=== PATIENT | female | born 1945 | race Caucasian/White ===

== ENCOUNTER 2021-07-16 15:29 | Inpatient (IN) | payer MEDICARE, OTHER ==
[~2021-07-16] VITALS: Ht 165.1 cm; Wt 81.6 kg
[2021-07-16 16:31] LABS: HEMOGLOBIN 14.1 gm/dl (12.3-15.3); RED BLOOD COUNT 4.71 M/UL (4.00-5.10)
[2021-07-16] MEDS ORDERED: BENZONATATE100 MG PO (18:27)
[2021-07-16] MEDS ORDERED: MEDROL4 MG PO (18:28)
[2021-07-16] MEDS ORDERED: ALLOPURINOL100 MG PO (18:28)
[2021-07-16] MEDS ORDERED: BUMETANIDE2 MG PO (18:28)
[2021-07-16] MEDS ORDERED: SPIRONOLACTONE25 MG PO (18:29)
[2021-07-16] MEDS ORDERED: WARFARIN SODIUM4 MG PO (18:29)
[2021-07-16] MEDS ORDERED: NITROGLYCERIN0.4 MG SL (18:29)
[2021-07-16] MEDS ORDERED: METOPROLOL TART50 MG PO (18:30)
[2021-07-16] MEDS ORDERED: EUTHYROX137 MCG PO (18:30)
[2021-07-16] MEDS ORDERED: CALCITRIOL0.25 MCG PO (18:30)
[2021-07-17 03:03] LABS: HEMOGLOBIN 13.3 gm/dl (12.3-15.3); RED BLOOD COUNT 4.4 M/UL (4.00-5.10)
[2021-07-17 03:33] LABS: WHITE BLOOD COUNT 2.9 K/UL (4.5-11.0)
[2021-07-18 06:57] LABS: HEMOGLOBIN 13.3 gm/dl (12.3-15.3); RED BLOOD COUNT 4.41 M/UL (4.00-5.10)
[2021-07-18 07:00] LABS: WHITE BLOOD COUNT 9.6 K/UL (4.5-11.0)
[2021-07-18 07:18] LABS: BUN/CREATININE RATIO 29 (0-10)
[2021-07-19 07:49] LABS: HEMOGLOBIN 12.4 gm/dl (12.3-15.3); RED BLOOD COUNT 4.24 M/UL (4.00-5.10); WHITE BLOOD COUNT 9.3 K/UL (4.5-11.0)
[2021-07-19 08:17] LABS: BUN/CREATININE RATIO 26 (0-10)
[2021-07-20 07:00] LABS: HEMOGLOBIN 12.7 gm/dl (12.3-15.3); RED BLOOD COUNT 4.37 M/UL (4.00-5.10)
[2021-07-20 07:03] LABS: WHITE BLOOD COUNT 5.9 K/UL (4.5-11.0)
[2021-07-20 07:40] LABS: BUN/CREATININE RATIO 25 (0-10)
[2021-07-21 06:31] LABS: HEMOGLOBIN 13.8 gm/dl (12.3-15.3); RED BLOOD COUNT 4.53 M/UL (4.00-5.10)
[2021-07-21 06:32] LABS: WHITE BLOOD COUNT 10.2 K/UL (4.5-11.0)
[2021-07-21 06:46] LABS: BUN/CREATININE RATIO 28 (0-10)
[2021-07-21] MEDS ORDERED: IPRAT-ALBUT 0.5-3 ML NEB (11:12)
[2021-07-21] MEDS ORDERED: BENZONATATE100 MG PO (11:12)
[2021-07-21] MEDS ORDERED: AUGMENTIN 875-1 EACH PO (11:12)
[2021-07-21] MEDS ORDERED: DEXAMETHASONE2 MG PO (11:12)
[2021-07-21] MEDS ORDERED: BUDESONIDE0.5 MG/2 M NEB (11:12)
[2021-07-21] MEDS ORDERED: AEROECLIPSE II1 EACH INH (11:17)
== END 2021-07-21 14:37 | disposition home or self-care (01) | DRG 177 ==
LOC: ER1 15:29 → M/S 18:51 → CDU 18:51 → M/S 22:15
PROVIDERS: Internal Medicine; Physician Assistant; Physician Assistant Medical; ADMIT Internal Medicine
PROC: 8E0ZXY6 Isolation (ICD-10-PCS; principal; 2021-07-16)
PROC: XW033E5 Introduction of Remdesivir Anti-infective into Peripheral Vein, Percutaneous Approach, New Technology Group 5 (ICD-10-PCS; 2021-07-16)
PROC: 3E0333Z Introduction of Anti-inflammatory into Peripheral Vein, Percutaneous Approach (ICD-10-PCS; 2021-07-16)
DX: U07.1 COVID-19 (principal); G93.41 Metabolic encephalopathy; J12.82 Pneumonia due to coronavirus disease 2019; J96.01 Acute respiratory failure with hypoxia; N17.9 Acute kidney failure, unspecified; I48.20 Chronic atrial fibrillation, unspecified; E78.5 Hyperlipidemia, unspecified; E03.9 Hypothyroidism, unspecified; I10 Essential (primary) hypertension; E87.6 Hypokalemia; M10.9 Gout, unspecified; D69.6 Thrombocytopenia, unspecified; Z90.49 Acquired absence of other specified parts of digestive tract; Z83.3 Family history of diabetes mellitus; Z85.3 Personal history of malignant neoplasm of breast; Z90.11 Acquired absence of right breast and nipple; Z82.49 Family history of ischemic heart disease and other diseases of the circulatory system; Z79.899 Other long term (current) drug therapy; Z95.0 Presence of cardiac pacemaker; Z79.52 Long term (current) use of systemic steroids; Z79.82 Long term (current) use of aspirin
CPT/HCPCS: 36415; 36600; 70450; 71045; 71250; 80053; 80202; 81001; 82140; 82550; 82553; 82728; 82803; 83036; 83540; 83550; 83605; 83735; 83874; 83880; 84100; 84132; 84484; 85025; 85027; 85379; 85610; 85652; 86140; 87040; 87086; 87205; 93005; 94640; 94664; 94760; 96374; 97110-GP-CQ; 97116-GP-CQ; 97161; 97530; 97530-GP-CQ; 99285; J0696; J1100; J1650; J1756; J3370; J3475; J7030; J7070

== ENCOUNTER → 2021-09-07 | Outpatient (CLI) | payer MEDICARE, OTHER ==
[~2021-09-07] MED LIST: AEROECLIPSE II1 EACH INH; ALLOPURINOL100 MG PO; AUGMENTIN 875-1 EACH PO; BENZONATATE100 MG PO; BUDESONIDE0.5 MG/2 M NEB; BUMETANIDE2 MG PO; CALCITRIOL0.25 MCG PO; DEXAMETHASONE2 MG PO; EUTHYROX137 MCG PO; IPRAT-ALBUT 0.5-3 ML NEB; MEDROL4 MG PO; METOPROLOL TART50 MG PO; NITROGLYCERIN0.4 MG SL; SPIRONOLACTONE25 MG PO; WARFARIN SODIUM4 MG PO
== END ==
LOC: KOH-I 10:14
DX: M54.50 Low back pain, unspecified (principal); M47.816 Spondylosis without myelopathy or radiculopathy, lumbar region
CPT/HCPCS: 72100

== ENCOUNTER → 2021-10-01 | Outpatient (CLI) | payer MEDICARE, OTHER | LOC: KOH-I 09-28 14:00 | DX: N18.9 Chronic kidney disease, unspecified (principal) | CPT/HCPCS: 76775 ==

== ENCOUNTER → 2021-10-23 | Outpatient (CLI) | payer MEDICARE, OTHER ==
[2021-10-24 10:14] LABS: CREATININE, URINE 69.3 mg/dL (Not Estab.)
== END ==
LOC: LAB 09:51
PROVIDERS: Internal Medicine Nephrology
DX: N18.9 Chronic kidney disease, unspecified (principal); M10.9 Gout, unspecified
CPT/HCPCS: 36415; 80053; 81001; 82043; 82570; 84156; 84550

== ENCOUNTER → 2022-01-07 | Outpatient (CLI) | payer MEDICARE, OTHER ==
[2022-01-07 15:58] LABS: BUN/CREATININE RATIO 23 (0-10)
[2022-01-08 10:14] LABS: CREATININE, URINE 41.4 mg/dL (Not Estab.); MICROALB/CREAT RATIO <7 (0-29)
== END ==
LOC: LAB 14:11
PROVIDERS: Internal Medicine Nephrology
DX: N18.9 Chronic kidney disease, unspecified (principal)
CPT/HCPCS: 36415; 80053; 81001; 82043; 82570; 84156; 84550

== ENCOUNTER → 2022-02-03 | Outpatient (CLI) | payer MEDICARE, OTHER | LOC: KOH-I 08:00 | DX: R10.9 Unspecified abdominal pain (principal); N13.30 Unspecified hydronephrosis; R93.5 Abnormal findings on diagnostic imaging of other abdominal regions, including retroperitoneum | CPT/HCPCS: 74176 ==

== ENCOUNTER → 2022-04-19 | Outpatient (CLI) | payer MEDICARE, OTHER | LOC: CT 08:34 | DX: R31.9 Hematuria, unspecified (principal); R10.9 Unspecified abdominal pain; N13.30 Unspecified hydronephrosis | CPT/HCPCS: 36415; 81001; 82565; 84520; 87086; Q9967 ==